=== PATIENT | male | born 1940 | race Caucasian/White ===

== ENCOUNTER 2023-03-12 00:16 | Emergency (ER) | payer MEDICARE, OTHER ==
[2023-03-12] VITALS (13 sets, daily range): BP systolic 158–199; BP diastolic 75–93
[2023-03-12 00:42] LABS: BASO% 0.1 % (0-3); EOS% 0.1 % (0-8); HEMATOCRIT 40.7 % (39.0-50.0); HEMOGLOBIN 13.1 g/dl (14.0-18.0); IMMATURE GRANULOCYTES 0.5 % (0.0-5.0); LYMPH% 6.3 % (15-41); MEAN CORPUSCULAR HGB 31.9 pG CALC (26.0-32.0); MEAN CORPUSCULAR HGB CONC 32.2 g/dL CAL (32.0-36.0); MONO% 5.2 % (2-13); NEUT# 12.59 thou/uL (1.82-7.42); NEUT% 87.8 % (42-76); RED BLOOD COUNT 4.11 mill/uL (4.70-6.10); RED CELL DISTRI WIDTH 13.3 % (11.5-15.5)
[2023-03-12] MEDS ORDERED: MULTIVITAMIN1 TA1 (00:58)
[2023-03-12 01:17] LABS: ALBUMIN 4.8 g/dL (3.2-5.0); ALKALINE PHOSPHATASE 98 u/l (38-126); AMYLASE 69 u/l (30-110); ANION GAP 23 (6-22 (CALC)); BILIRUBIN, TOTAL 1.8 mg/dL (0.2-1.3); BUN 25 mg/dL (8-23); BUN/CREATININE RATIO 30 (12-20 (CALC)); CARBON DIOXIDE 18 mmol/l (22-30); CHLORIDE 98 mmol/l (95-108); CREATININE 0.8 mg/dL (0.7-1.3); GFR FOR AFR.AMER. > 60 ML/MIN (>=60 (CALC)); GFR OTHER RACES > 60 ML/MIN (>=60 (CALC)); LIPASE 130 u/l (23-300); POTASSIUM 4.3 mmol/l (3.5-5.1); SGOT/AST 52 u/l (19-48); SODIUM 134 mmol/l (137-146); TOTAL PROTEIN 7.8 g/dL (6.3-8.2)
[2023-03-12 01:35] LABS: ACT PARTIAL THROMBO TIME 33.7 SECONDS (20.0-32.5); INTERNATIONAL NORMALIZED RATIO 1.7 RATIO (0.7-1.3); PROTHROMBIN TIME 16.3 SECONDS (9.0-12.5)
[2023-03-12] MEDS ORDERED: METHOCARBAMOL500 MG PO (03:37)
[2023-03-12] MEDS ORDERED: IBUPROFEN600 MG PO (03:37)
== END 2023-03-12 03:51 | disposition home or self-care (01) ==
LOC: ED 00:16
PROVIDERS: Family Medicine
DX: M94.0 Chondrocostal junction syndrome [Tietze] (principal); S20.211A Contusion of right front wall of thorax, initial encounter; X58.XXXA Exposure to other specified factors, initial encounter; Z20.822 Contact with and (suspected) exposure to COVID-19
CPT/HCPCS: Q9967